=== PATIENT | female | born 1945 | race African-American/Black ===

== ENCOUNTER 2019-05-31 11:02 | Emergency (ER) | payer OTHER | END 2019-05-31 16:50 | disposition home or self-care (01) | LOC: JER 11:02 ==

== ENCOUNTER 2020-10-12 17:04 | Emergency (ER) | payer OTHER ==
[2020-10-12 17:22] VITALS: TEMP 98.4; BMI 43.2
[2020-10-12] MEDS ORDERED: METOCLOPRAMIDE HCL INJECTION 10 MG/2 ML VIAL IVPUSH ONE (18:23)
[2020-10-12] MEDS ORDERED: FAMOTIDINE 20 MG/50 ML IVPB 20 MG/50 ML MG IVPB ONE ×2 (18:23→18:40)
[2020-10-12] MEDS ORDERED: LACTATED RINGERS SOLUTION 1000 ML INFUS.BAG IV ONE (18:23)
[2020-10-12] MEDS ORDERED: METOCLOPRAMIDE HCL INJECTION 10 MG/2 ML VIAL ONE (18:40)
[2020-10-12 19:37] LABS: BASO % 0.8 % (0-2.0); EOS % 0.2 % (0-4.5); HEMATOCRIT 45.4 % (32.4-45.2); HEMOGLOBIN 14.8 GM/dL (10.7-15.3); LYMPH % 12.2 % (8-40); MCH 28.4 pg (25.7-33.7); MCHC 32.7 g/dl (32.0-36.0); MEAN CELL VOLUME 86.8 fl (80-96); MEAN PLT VOLUME 9.7 fl (7.5-11.1); MONO % 3.8 % (3.8-10.2); PLATELET COUNT 550 K/MM3 (134-434); RBC 5.23 M/mm3 (3.60-5.2); RDW 14.6 % (11.6-15.6); WHITE BLOOD COUNT 9.8 K/mm3 (4.0-10.0)
[2020-10-12 19:56] LABS: CHLORIDE 105 mmol/L (98-107); SODIUM 140 mmol/L (136-145)
[2020-10-12 19:58] LABS: CALCIUM 9.7 mg/dL (8.5-10.1)
[2020-10-12 19:59] LABS: ALBUMIN 3.8 g/dl (3.4-5.0); ANION GAP 8 MMOL/L (8-16); BLOOD UREA NITROGEN 16.8 mg/dL (7-18); CO2 27 mmol/L (21-32); GLUCOSE,RANDOM 105 mg/dL (74-106); LIPASE 39 U/L (73-393); MAGNESIUM 1.9 mg/dL (1.8-2.4)
[2020-10-12 20:02] LABS: CREATININE 1.1 mg/dL (0.55-1.3); SGOT/AST 19 U/L (15-37); SGPT/ALT 15 U/L (13-61)
[2020-10-12 20:03] LABS: BILIRUBIN,TOTAL 0.4 mg/dL (0.2-1)
[2020-10-12 20:04] LABS: ALK PHOS 98 U/L (45-117)
[2020-10-12 20:29] LABS: URINE APPEARANCE CLEAR; URINE BILIRUBIN NEGATIVE (NEGATIVE); URINE COLOR YELLOW; URINE GLUCOSE (UA) NEGATIVE (NEGATIVE); URINE KETONE NEGATIVE (NEGATIVE); URINE LEUK ESTERASE NEGATIVE (NEGATIVE); URINE NITRITE NEGATIVE (NEGATIVE); URINE PROTEIN NEGATIVE (NEGATIVE); URINE UROBILINOGEN 0.2 mg/dL (0.2-1.0)
[2020-10-12] MEDS ORDERED: KETOROLAC TROMETHAMINE 15 MG/ML VIAL IVPUSH ONE (20:30)
[2020-10-12] MEDS ORDERED: KETOROLAC TROMETHAMINE 15 MG/ML VIAL ONE (20:59)
[2020-10-12 22:33] VITALS: BP 138/89; PULSE 89
== END 2020-10-12 22:33 | disposition home or self-care (01) ==
LOC: JER 17:04
PROC: 3E033GC Introduction of Other Therapeutic Substance into Peripheral Vein, Percutaneous Approach (ICD-10-PCS; principal; 2020-10-12)
PROC: 3E0333Z Introduction of Anti-inflammatory into Peripheral Vein, Percutaneous Approach (ICD-10-PCS; 2020-10-12)
PROC: 3E033GC Introduction of Other Therapeutic Substance into Peripheral Vein, Percutaneous Approach (ICD-10-PCS; 2020-10-12)
DX: R11.2 Nausea with vomiting, unspecified (principal)
CPT/HCPCS: 36415; 71046-TC-FY; 80053; 81003; 82550; 82553; 83690; 83735; 84484; 85025; 87086; 93005; 93010; 99285-25; C9803; U0003

== ENCOUNTER 2021-04-29 16:17 | Inpatient (IN) | payer OTHER ==
[2021-04-29] MEDS ORDERED: ACETAMINOPHEN 1000 MG/100 ML VIAL (NON FORMULARY) IVPB ONE (18:05)
[2021-04-29] MEDS ORDERED: ONDANSETRON 4 MG TABLET PO ONE (18:05)
[2021-04-29] MEDS ORDERED: FAMOTIDINE 20 MG TABLET PO ONE (18:05)
[2021-04-29] MEDS ORDERED: SODIUM CHLORIDE 0.9% 500 ML INFUS.BAG IV ONE (18:05)
[2021-04-29] MEDS ORDERED: FAMOTIDINE 20 MG TABLET ONE (18:45)
[2021-04-29] MEDS ORDERED: ACETAMINOPHEN INJECTION 100 ML IVPB ONE (18:46)
[2021-04-29] MEDS ORDERED: ONDANSETRON *ODT* 4 MG TABLET ONE (18:46)
[2021-04-29 18:50] LABS: PH,URINE 6.5 (5.0-8.0); URINE APPEARANCE CLEAR; URINE BILIRUBIN NEGATIVE (NEGATIVE); URINE COLOR YELLOW; URINE GLUCOSE (UA) NEGATIVE (NEGATIVE); URINE KETONE NEGATIVE (NEGATIVE); URINE LEUK ESTERASE NEGATIVE (NEGATIVE); URINE NITRITE NEGATIVE (NEGATIVE); URINE PROTEIN NEGATIVE (NEGATIVE)
[2021-04-29 18:52] LABS: EOS % 1.6 % (0-4.5); HEMATOCRIT 46.2 % (32.4-45.2); HEMOGLOBIN 15.3 GM/dL (10.7-15.3); LYMPH % 12.5 % (8-40); MCH 28.2 pg (25.7-33.7); MCHC 33.1 g/dl (32.0-36.0); MEAN CELL VOLUME 85.4 fl (80-96); MEAN PLT VOLUME 8.9 fl (7.5-11.1); MONO % 7.8 % (3.8-10.2); NEUT % 77.1 % (42.8-82.8); PLATELET COUNT 545 10^3/uL (134-434); RBC 5.41 M/mm3 (3.60-5.2); RDW 15.8 % (11.6-15.6); WHITE BLOOD COUNT 9.4 K/mm3 (4.0-10.0)
[2021-04-29 19:08] LABS: CHLORIDE 106 mmol/L (98-107); SODIUM 141 mmol/L (136-145)
[2021-04-29 19:11] LABS: ALBUMIN 3.7 g/dl (3.4-5.0); ANION GAP 7 MMOL/L (8-16); BLOOD UREA NITROGEN 14.4 mg/dL (7-18); CALCIUM 9.9 mg/dL (8.5-10.1); CO2 28 mmol/L (21-32); GLUCOSE,RANDOM 106 mg/dL (74-106); LIPASE 44 U/L (73-393)
[2021-04-29 19:14] LABS: SGOT/AST 16 U/L (15-37); SGPT/ALT 20 U/L (13-61)
[2021-04-29 19:16] LABS: BILIRUBIN,TOTAL 0.4 mg/dL (0.2-1); TOT PROT 7.6 g/dl (6.4-8.2)
[2021-04-29 19:17] LABS: ALK PHOS 92 U/L (45-117)
[2021-04-29] MEDS ORDERED: morphine CARPU-JECT 2 MG/1 ML DISP.SYRIN IVPUSH ONE (20:05)
[2021-04-29] MEDS ORDERED: LORazepam 2 MG TABLET PO ONE (20:05)
[2021-04-29] MEDS ORDERED: LORazepam 1 MG TABLET ONE (20:30)
[2021-04-29] MEDS ORDERED: MORPHINE SULFATE 2 MG/ML VIAL ONE (20:30)
[2021-04-30] MEDS ORDERED: PATIENT'S OWN MEDICATION (NON-FORMULARY) (Diclofenac Sodium [Voltaren] 100 GM Gel..Gram.) TP PRN (06:17)
[2021-04-30] MEDS ORDERED: ASPIRIN COATED 81 MG TABLET.EC ONE (10:26)
[2021-04-30] MEDS ORDERED: DOCUSATE SODIUM 100 MG CAPSULE (FP) PO ONE (10:26)
[2021-04-30] MEDS ORDERED: FAMOTIDINE 20 MG TABLET ONE (10:26)
[2021-04-30] MEDS ORDERED: ENOXAPARIN NA (PORCINE) 40 MG/0.4 ML DISP.SYRIN SQ ONE (10:26)
[2021-04-30] MEDS: FAMOTIDINE 40 MG TABLET PO SCH (10:36)
[2021-04-30] MEDS: ASPIRIN COATED 81 MG TABLET.EC PO SCH (10:36)
[2021-04-30] MEDS: DOCUSATE SODIUM 100 MG CAPSULE (FP) PO SCH ×2 (10:36→21:31)
[2021-04-30] MEDS: ENOXAPARIN NA (PORCINE) 40 MG/0.4 ML DISP.SYRIN SQ SCH (10:36)
[2021-04-30] MEDS: oxyCODONE HCL 5 MG TABLET PO PRN ×2 (14:24→21:30)
[2021-05-01 08:10] LABS: BASO % 1.1 % (0-2.0); EOS % 7.7 % (0-4.5); HEMATOCRIT 41.9 % (32.4-45.2); HEMOGLOBIN 13.9 GM/dL (10.7-15.3); LYMPH % 25.1 % (8-40); MCH 28.5 pg (25.7-33.7); MCHC 33.2 g/dl (32.0-36.0); MEAN CELL VOLUME 85.7 fl (80-96); MEAN PLT VOLUME 9.2 fl (7.5-11.1); MONO % 9.3 % (3.8-10.2); NEUT % 56.8 % (42.8-82.8); PLATELET COUNT 506 10^3/uL (134-434); RBC 4.89 M/mm3 (3.60-5.2); RDW 15.7 % (11.6-15.6); WHITE BLOOD COUNT 9.5 K/mm3 (4.0-10.0)
[2021-05-01 08:35] LABS: BLOOD UREA NITROGEN 12.4 mg/dL (7-18); CALCIUM 9.2 mg/dL (8.5-10.1)
[2021-05-01 08:38] LABS: CREATININE 1.1 mg/dL (0.55-1.3)
[2021-05-01] MEDS: ASPIRIN COATED 81 MG TABLET.EC PO SCH (10:21)
[2021-05-01] MEDS: oxyCODONE HCL 5 MG TABLET PO PRN ×2 (10:21→21:49)
[2021-05-01] MEDS: DOCUSATE SODIUM 100 MG CAPSULE (FP) PO SCH ×2 (10:21→21:49)
[2021-05-01] MEDS: FAMOTIDINE 40 MG TABLET PO SCH (10:22)
[2021-05-01] MEDS: ENOXAPARIN NA (PORCINE) 40 MG/0.4 ML DISP.SYRIN SQ SCH (10:22)
[2021-05-01] MEDS: ACETAMINOPHEN 500 MG TABLET (FP) PO PRN (14:44)
[2021-05-02] MEDS: oxyCODONE HCL 5 MG TABLET PO PRN ×2 (09:55→21:16)
[2021-05-02] MEDS: ASPIRIN COATED 81 MG TABLET.EC PO SCH (09:57)
[2021-05-02] MEDS: FAMOTIDINE 40 MG TABLET PO SCH (09:57)
[2021-05-02] MEDS: DOCUSATE SODIUM 100 MG CAPSULE (FP) PO SCH ×2 (09:57→21:16)
[2021-05-02] MEDS: ENOXAPARIN NA (PORCINE) 40 MG/0.4 ML DISP.SYRIN SQ SCH (09:57)
[2021-05-02 20:05] LABS: URINE BARBITURATES NEGATIVE (NEGATIVE); URINE BENZODIAZEPINES NEGATIVE (NEGATIVE)
[2021-05-02 20:06] LABS: OPIATES, URI NEGATIVE (NEGATIVE); PHENCYCLIDINE,URINE NEGATIVE (NEGATIVE)
[2021-05-02 20:12] LABS: COCAINE, UR NEGATIVE (NEGATIVE); METHADONE, UR NEGATIVE (NEGATIVE); URINE AMPHETAMINES NEGATIVE (NEGATIVE)
[2021-05-03] MEDS ORDERED: PT OWN MED DRAWER 7, Y5N ONE ×2 (08:13→09:06)
[2021-05-03] MEDS: FAMOTIDINE 40 MG TABLET PO SCH (09:13)
[2021-05-03] MEDS: ASPIRIN COATED 81 MG TABLET.EC PO SCH (09:13)
[2021-05-03] MEDS: DOCUSATE SODIUM 100 MG CAPSULE (FP) PO SCH ×2 (09:13→21:07)
[2021-05-03] MEDS: ENOXAPARIN NA (PORCINE) 40 MG/0.4 ML DISP.SYRIN SQ SCH (09:13)
[2021-05-03] MEDS: ACETAMINOPHEN 500 MG TABLET (FP) PO PRN ×2 (09:21→20:18)
[2021-05-03 11:48] VITALS: BMI 40.9
[2021-05-03] MEDS: oxyCODONE HCL 5 MG TABLET PO PRN (20:20)
[2021-05-04] MEDS: oxyCODONE HCL 5 MG TABLET PO PRN ×2 (06:37→19:52)
[2021-05-04] MEDS: DOCUSATE SODIUM 100 MG CAPSULE (FP) PO SCH ×2 (09:41→21:12)
[2021-05-04] MEDS: ENOXAPARIN NA (PORCINE) 40 MG/0.4 ML DISP.SYRIN SQ SCH (09:41)
[2021-05-04] MEDS: ASPIRIN COATED 81 MG TABLET.EC PO SCH (09:41)
[2021-05-04] MEDS: FAMOTIDINE 40 MG TABLET PO SCH (09:41)
[2021-05-05] MEDS ORDERED: PT OWN MED DRAWER 7, Y5N ONE (09:28)
[2021-05-05] MEDS: ASPIRIN COATED 81 MG TABLET.EC PO SCH (09:45)
[2021-05-05] MEDS: ENOXAPARIN NA (PORCINE) 40 MG/0.4 ML DISP.SYRIN SQ SCH (09:45)
[2021-05-05] MEDS: FAMOTIDINE 40 MG TABLET PO SCH (09:45)
[2021-05-05] MEDS: DOCUSATE SODIUM 100 MG CAPSULE (FP) PO SCH ×2 (09:46→22:20)
[2021-05-05] MEDS: ACETAMINOPHEN 500 MG TABLET (FP) PO PRN (10:03)
[2021-05-05] MEDS: oxyCODONE HCL 5 MG TABLET PO PRN ×2 (10:03→22:20)
[2021-05-06] MEDS ORDERED: PT OWN MED DRAWER 7, Y5N ONE (09:04)
[2021-05-06] MEDS: ASPIRIN COATED 81 MG TABLET.EC PO SCH (09:23)
[2021-05-06] MEDS: FAMOTIDINE 40 MG TABLET PO SCH (09:23)
[2021-05-06] MEDS: ENOXAPARIN NA (PORCINE) 40 MG/0.4 ML DISP.SYRIN SQ SCH (09:23)
[2021-05-06] MEDS: DOCUSATE SODIUM 100 MG CAPSULE (FP) PO SCH (09:23)
[2021-05-06 14:09] VITALS: BP 143/58; PULSE 57; TEMP 98.6
== END 2021-05-06 16:04 | disposition home health service (06) | DRG 552 ==
LOC: JER 16:17 → JERBED 04-30 00:17 → UNDOADMOB 04-30 00:17 → JERBED 04-30 14:14 → J4S 04-30 14:14 → INTOOBSV 05-03 11:22 → J4S 05-03 11:22 → JERBED 05-03 11:22 → OBSVTOIN 05-03 11:22
PROVIDERS: ADMIT Hospitalist; ATTEND Family Medicine
DX: M48.062 Spinal stenosis, lumbar region with neurogenic claudication (principal); Z68.41 Body mass index [BMI] 40.0-44.9, adult; F11.20 Opioid dependence, uncomplicated; R42 Dizziness and giddiness; K21.9 Gastro-esophageal reflux disease without esophagitis; I12.9 Hypertensive chronic kidney disease with stage 1 through stage 4 chronic kidney disease, or unspecified chronic kidney disease; N18.9 Chronic kidney disease, unspecified; R26.9 Unspecified abnormalities of gait and mobility; M54.16 Radiculopathy, lumbar region; R10.32 Left lower quadrant pain; K76.0 Fatty (change of) liver, not elsewhere classified; E66.9 Obesity, unspecified; I44.7 Left bundle-branch block, unspecified; I44.0 Atrioventricular block, first degree; G89.29 Other chronic pain; R94.31 Abnormal electrocardiogram [ECG] [EKG]; K44.9 Diaphragmatic hernia without obstruction or gangrene; M48.07 Spinal stenosis, lumbosacral region; M54.17 Radiculopathy, lumbosacral region
CPT/HCPCS: 36415; 70450-TC; 71045-TC-FY; 72148-TC; 74177-TC; 80048; 80053; 80307; 81003; 82550; 83605; 83690; 84484; 85025; 87086; 93005; 93010; 93306-TC; 95860-TC; 97116-GP; 97161-GP; 99285-25; C9803; J0131; Q9967; U0003; U0005

== ENCOUNTER 2021-05-25 00:01 | Emergency (ER) | payer OTHER ==
[2021-05-25 00:15] VITALS: TEMP 98.2; BMI 46.5
[2021-05-25 04:06] VITALS: BP 122/76; PULSE 73
== END 2021-05-25 04:06 | disposition home or self-care (01) ==
LOC: JER 00:01
DX: S93.401A Sprain of unspecified ligament of right ankle, initial encounter (principal); W19.XXXA Unspecified fall, initial encounter
CPT/HCPCS: 73030-TC-RT-FY; 73610-TC-RT-FY; 73630-TC-RT-FY; 99284-25

== ENCOUNTER 2024-07-18 14:42 | Emergency (ER) | payer OTHER ==
[2024-07-18 16:01] VITALS: BMI 39.9
[2024-07-18 16:34] LABS: BASO % 1.3 % (0-2.0); EOS % 2.9 % (0-4.5); HEMATOCRIT 38.7 % (32.4-45.2); HEMOGLOBIN 12.3 GM/dL (10.7-15.3); LYMPH % 14.1 % (8-40); MCH 24.2 pg (25.7-33.7); MCHC 31.9 g/dl (32.0-36.0); MEAN PLT VOLUME 8.6 fl (7.5-11.1); NEUT % 72.7 % (42.8-82.8); PLATELET COUNT 471 10^3/uL (134-434); RBC 5.09 M/mm3 (3.60-5.2); RDW 16.7 % (11.6-15.6); WHITE BLOOD COUNT 11.4 K/mm3 (4.0-10.0)
[2024-07-18 16:41] LABS: INR 1.13 (0.83-1.09)
[2024-07-18 16:43] LABS: ACTIVATED PTT 32.6 SECONDS (25.2-36.5)
[2024-07-18 16:55] LABS: POTASSIUM 3.5 mmol/L (3.5-5.1)
[2024-07-18 16:57] LABS: ALBUMIN 3.1 g/dl (3.4-5.0); CALCIUM 9.6 mg/dL (8.5-10.1)
[2024-07-18 17:00] LABS: CREATININE 1.1 mg/dL (0.55-1.3)
[2024-07-18 17:02] LABS: BILIRUBIN,TOTAL 0.6 mg/dL (0.2-1); TOT PROT 6.8 g/dl (6.4-8.2)
[2024-07-18 17:50] LABS: HIV INTERPRETATION NEGATIVE (NEGATIVE)
[2024-07-18] MEDS ORDERED: HEPARIN NA (PORCINE) 5,000 UNITS/ML 1ML VIAL IVPUSH PRN ×3 (19:50→21:08)
[2024-07-18] MEDS ORDERED: HEPARIN NA (PORCINE) 5,000 UNITS/ML 1ML VIAL IVPUSH ONE ×3 (19:56→21:00)
[2024-07-18] MEDS ORDERED: HEPARIN NA (PORCINE) 5,000 UNITS/ML 1ML VIAL ONE (19:58)
[2024-07-18] MEDS ORDERED: HEPARIN INFUSION - 500 ML IVPB SCH (20:30)
[2024-07-18] MEDS ORDERED: HEPARIN INFUSION - 25,000 UNITS/500 ML INFUS.BAG IVPB SCH (21:15)
[2024-07-18] MEDS ORDERED: HEPARIN INFUSION - 25,000 UNITS/500 ML INFUS.BAG IVPB ONE (21:19)
[2024-07-18] MEDS: HEPARIN INFUSION - 25,000 UNITS/500 ML INFUS.BAG IVPB SCH (21:28)
[2024-07-18 21:54] LABS: INR 1.13 (0.83-1.09); PROTHROMBIN TIME (PATIENT) 12.9 SEC (9.7-13.0)
[2024-07-18 21:56] LABS: ACTIVATED PTT 33.3 SECONDS (25.2-36.5)
[2024-07-18 23:07] VITALS: BP 121/53; PULSE 65; RESP 16
== END 2024-07-18 23:08 | disposition short-term general hospital (02) ==
LOC: JER 14:42
DX: R06.02 Shortness of breath (principal); Z20.822 Contact with and (suspected) exposure to COVID-19
CPT/HCPCS: 0241U-QW; 36415; 71045-TC-FY; 71275-TC; 80053; 83880; 84484; 85025; 85610; 85730; 86803; 87389; 93005; 93010; 99285-25; J1644; Q9967

== ENCOUNTER 2024-08-10 02:49 | Inpatient (IN) | payer OTHER ==
[2024-08-10 02:57] VITALS: BMI 39.4
[2024-08-10 04:24] LABS: BASO % 0.9 % (0-2.0); EOS % 7.5 % (0-4.5); HEMATOCRIT 40.6 % (32.4-45.2); HEMOGLOBIN 12.7 GM/dL (10.7-15.3); MCH 23.4 pg (25.7-33.7); MCHC 31.4 g/dl (32.0-36.0); MEAN CELL VOLUME 74.5 fl (80-96); MONO % 12.1 % (3.8-10.2); NEUT % 57.5 % (42.8-82.8); PLATELET COUNT 649 10^3/uL (134-434); RBC 5.45 M/mm3 (3.60-5.2); RDW 16.8 % (11.6-15.6); WHITE BLOOD COUNT 10.7 K/mm3 (4.0-10.0)
[2024-08-10 04:42] LABS: POTASSIUM 5.4 mmol/L (3.5-5.1)
[2024-08-10 04:45] LABS: ALBUMIN 3.5 g/dl (3.4-5.0); BLOOD UREA NITROGEN 19.8 mg/dL (7-18); CALCIUM 10.4 mg/dL (8.5-10.1); MAGNESIUM 2.1 mg/dL (1.8-2.4)
[2024-08-10 04:47] LABS: CREATININE 1.4 mg/dL (0.55-1.3)
[2024-08-10 04:49] LABS: BILIRUBIN,TOTAL 0.5 mg/dL (0.2-1); TOT PROT 7.5 g/dl (6.4-8.2)
[2024-08-10 06:05] LABS: INR 1.87 (0.83-1.09); PROTHROMBIN TIME (PATIENT) 20.7 SEC (9.7-13.0)
[2024-08-10 06:08] LABS: ACTIVATED PTT 84.5 SECONDS (25.2-36.5)
[2024-08-10 06:10] LABS: EPI CELLS 2 /uL (0-25.1); HYALINE CASTS 0 /uL (0-3.1); PH,URINE 5.5 (5.0-8.0); URINE APPEARANCE CLEAR; URINE BACTERIA >9,000 /uL (0-1359); URINE BILIRUBIN NEGATIVE (NEGATIVE); URINE COLOR YELLOW; URINE GLUCOSE (UA) NEGATIVE (NEGATIVE); URINE KETONE NEGATIVE (NEGATIVE); URINE LEUK ESTERASE 2+ (NEGATIVE); URINE NITRITE POSITIVE (NEGATIVE); URINE PROTEIN NEGATIVE (NEGATIVE); URINE RBC 17 /uL (0-23.9); URINE WBC 212 /uL (0-25.8)
[2024-08-10 06:12] LABS: N-TERMINAL BNP 83.5 pg/ml (5-450)
[2024-08-10] MEDS ORDERED: CEFTRIAXONE 1 GM/50 ML BAG ONE (06:22)
[2024-08-10 06:35] LABS: POTASSIUM 4.7 mmol/L (3.5-5.1)
[2024-08-10 06:37] LABS: BLOOD UREA NITROGEN 18.2 mg/dL (7-18); CALCIUM 9.3 mg/dL (8.5-10.1)
[2024-08-10 06:41] LABS: CREATININE 1.2 mg/dL (0.55-1.3)
[2024-08-10] MEDS ORDERED: PANTOPRAZOLE 40 MG TABLET PO ONE (10:53)
[2024-08-10] MEDS ORDERED: amLODIPine BESYLATE 2.5 MG TABLET (FP) ONE (10:54)
[2024-08-10] MEDS ORDERED: APIXABAN 5 MG TABLET ONE (10:54)
[2024-08-10] MEDS: APIXABAN 5 MG TABLET PO SCH (11:00)
[2024-08-10] MEDS: amLODIPine BESYLATE 2.5 MG TABLET (FP) PO SCH (11:03)
[2024-08-10] MEDS: PANTOPRAZOLE 40 MG TABLET PO SCH (11:04)
[2024-08-10] MEDS: oxyCODONE HCL 5 MG TABLET PO PRN (14:21)
[2024-08-11 07:38] LABS: BASO % 0.9 % (0-2.0); EOS % 8.3 % (0-4.5); HEMOGLOBIN 12.1 GM/dL (10.7-15.3); LYMPH % 20.8 % (8-40); MCH 23.4 pg (25.7-33.7); MCHC 31.8 g/dl (32.0-36.0); MEAN CELL VOLUME 73.7 fl (80-96); MEAN PLT VOLUME 9.1 fl (7.5-11.1); MONO % 12.5 % (3.8-10.2); NEUT % 57.5 % (42.8-82.8); PLATELET COUNT 615 10^3/uL (134-434); RBC 5.16 M/mm3 (3.60-5.2); RDW 16.6 % (11.6-15.6); WHITE BLOOD COUNT 9.1 K/mm3 (4.0-10.0)
[2024-08-11 07:55] LABS: POTASSIUM 4.4 mmol/L (3.5-5.1)
[2024-08-11 07:59] LABS: ALBUMIN 3.1 g/dl (3.4-5.0); CALCIUM 9.8 mg/dL (8.5-10.1)
[2024-08-11 08:03] LABS: CREATININE 1.1 mg/dL (0.55-1.3)
[2024-08-11 08:04] LABS: BILIRUBIN,TOTAL 0.6 mg/dL (0.2-1); TOT PROT 6.6 g/dl (6.4-8.2)
[2024-08-11] MEDS: CEFTRIAXONE 1 GM in DEXTROSE 5%-WATER - 50 ML IVPB SCH (11:00)
[2024-08-11] MEDS: NYSTATIN 100,000 UNIT/GM TOPICAL CREAM 15 GM TUBE TP SCH (12:12)
[2024-08-11] MEDS: ZINC OXIDE 20% TOPICAL OINTMENT 30 GM TUBE TP SCH (12:13)
[2024-08-11] MEDS: ACETAMINOPHEN 325 MG TABLET (FP) PO PRN (20:19)
[2024-08-12 07:29] LABS: HEMATOCRIT 36.4 % (32.4-45.2); MCH 24.4 pg (25.7-33.7); MEAN CELL VOLUME 73.9 fl (80-96); MEAN PLT VOLUME 9.3 fl (7.5-11.1); PLATELET COUNT 579 10^3/uL (134-434); RBC 4.92 M/mm3 (3.60-5.2); RDW 16.7 % (11.6-15.6); WHITE BLOOD COUNT 9.9 K/mm3 (4.0-10.0)
[2024-08-12 07:51] LABS: POTASSIUM 4.4 mmol/L (3.5-5.1)
[2024-08-12 08:01] LABS: CALCIUM 9.4 mg/dL (8.5-10.1)
[2024-08-12 08:02] LABS: ALBUMIN 3.1 g/dl (3.4-5.0); BLOOD UREA NITROGEN 16.5 mg/dL (7-18); MAGNESIUM 1.8 mg/dL (1.8-2.4)
[2024-08-12 08:05] LABS: CREATININE 1.2 mg/dL (0.55-1.3); PHOSPHOROUS 3.6 mg/dL (2.5-4.9)
[2024-08-12 08:06] LABS: BILIRUBIN,TOTAL 0.6 mg/dL (0.2-1); TOT PROT 6.4 g/dl (6.4-8.2)
[2024-08-13 07:46] LABS: HEMATOCRIT 37.6 % (32.4-45.2); HEMOGLOBIN 11.8 GM/dL (10.7-15.3); MCH 23.6 pg (25.7-33.7); MCHC 31.5 g/dl (32.0-36.0); MEAN CELL VOLUME 74.9 fl (80-96); MEAN PLT VOLUME 9.2 fl (7.5-11.1); PLATELET COUNT 575 10^3/uL (134-434); RBC 5.02 M/mm3 (3.60-5.2); RDW 16.9 % (11.6-15.6); WHITE BLOOD COUNT 10.6 K/mm3 (4.0-10.0)
[2024-08-13 08:02] LABS: POTASSIUM 4.3 mmol/L (3.5-5.1)
[2024-08-13 08:07] LABS: ALBUMIN 2.9 g/dl (3.4-5.0); BLOOD UREA NITROGEN 13.5 mg/dL (7-18); MAGNESIUM 1.9 mg/dL (1.8-2.4)
[2024-08-13 08:10] LABS: CREATININE 1.1 mg/dL (0.55-1.3); PHOSPHOROUS 3.9 mg/dL (2.5-4.9)
[2024-08-13 08:11] LABS: BILIRUBIN,TOTAL 0.6 mg/dL (0.2-1); TOT PROT 6.3 g/dl (6.4-8.2)
[2024-08-14 07:24] LABS: BASO % 1.1 % (0-2.0); EOS % 9.5 % (0-4.5); HEMATOCRIT 39.6 % (32.4-45.2); HEMOGLOBIN 12.3 GM/dL (10.7-15.3); LYMPH % 18.6 % (8-40); MCH 23.4 pg (25.7-33.7); MCHC 31.1 g/dl (32.0-36.0); MEAN CELL VOLUME 75.1 fl (80-96); MEAN PLT VOLUME 9.2 fl (7.5-11.1); MONO % 12.1 % (3.8-10.2); NEUT % 58.7 % (42.8-82.8); PLATELET COUNT 574 10^3/uL (134-434); RBC 5.27 M/mm3 (3.60-5.2); RDW 16.7 % (11.6-15.6)
[2024-08-14 07:34] LABS: POTASSIUM 4.3 mmol/L (3.5-5.1)
[2024-08-14 07:43] LABS: CALCIUM 9.6 mg/dL (8.5-10.1)
[2024-08-14 07:44] LABS: MAGNESIUM 1.9 mg/dL (1.8-2.4)
[2024-08-14 07:47] LABS: BILIRUBIN,TOTAL 0.5 mg/dL (0.2-1); PHOSPHOROUS 3.3 mg/dL (2.5-4.9); TOT PROT 6.5 g/dl (6.4-8.2)
[2024-08-14] MEDS ORDERED: oxyCODONE HCL 5 MG TABLET PO PRN (23:37)
[2024-08-15] MEDS: oxyCODONE HCL 5 MG TABLET PO PRN (00:16)
[2024-08-15 08:20] LABS: HEMATOCRIT 38.3 % (32.4-45.2); HEMOGLOBIN 12.4 GM/dL (10.7-15.3); MCH 23.6 pg (25.7-33.7); MCHC 32.3 g/dl (32.0-36.0); MEAN CELL VOLUME 73.2 fl (80-96); MEAN PLT VOLUME 9.1 fl (7.5-11.1); PLATELET COUNT 594 10^3/uL (134-434); RBC 5.23 M/mm3 (3.60-5.2); RDW 16.8 % (11.6-15.6)
[2024-08-15 08:37] LABS: POTASSIUM 4.4 mmol/L (3.5-5.1)
[2024-08-15 08:39] LABS: ALBUMIN 2.9 g/dl (3.4-5.0)
[2024-08-15 08:40] LABS: BLOOD UREA NITROGEN 17.6 mg/dL (7-18); MAGNESIUM 1.8 mg/dL (1.8-2.4)
[2024-08-15 08:44] LABS: CREATININE 1.1 mg/dL (0.55-1.3); PHOSPHOROUS 3.6 mg/dL (2.5-4.9)
[2024-08-15 08:45] LABS: BILIRUBIN,TOTAL 0.4 mg/dL (0.2-1); TOT PROT 6.4 g/dl (6.4-8.2)
[2024-08-15 15:29] VITALS: BP 126/70; PULSE 78; RESP 18; TEMP 98.7
== END 2024-08-15 16:54 | disposition home or self-care (01) | DRG 689 ==
LOC: JER 02:49 → JERBED 08:39 → OBSVTOIN 10:19 → J4W 16:24
PROVIDERS: ADMIT Internal Medicine; ATTEND Internal Medicine
DX: N39.0 Urinary tract infection, site not specified (principal); I26.99 Other pulmonary embolism without acute cor pulmonale; F11.20 Opioid dependence, uncomplicated; Z68.41 Body mass index [BMI] 40.0-44.9, adult; E66.01 Morbid (severe) obesity due to excess calories; B96.89 Other specified bacterial agents as the cause of diseases classified elsewhere; R07.89 Other chest pain; M54.9 Dorsalgia, unspecified; M79.602 Pain in left arm; G62.9 Polyneuropathy, unspecified; R30.0 Dysuria; L22 Diaper dermatitis; B37.2 Candidiasis of skin and nail; I12.9 Hypertensive chronic kidney disease with stage 1 through stage 4 chronic kidney disease, or unspecified chronic kidney disease; N18.9 Chronic kidney disease, unspecified; D72.829 Elevated white blood cell count, unspecified; Z85.42 Personal history of malignant neoplasm of other parts of uterus; Z86.718 Personal history of other venous thrombosis and embolism
CPT/HCPCS: 0241U-QW; 36415; 71045-TC-FY; 72132-TC; 73560-TC-LT-FY; 80048; 80053; 81003; 83735; 83880; 84100; 84439; 84443; 84484; 85025; 85027; 85610; 85730; 86850; 86900; 86901; 87086; 87186; 93005; 93010; 97116-GP; 97161-GP; 99285-25; G0378; Q9967

== ENCOUNTER 2025-02-11 15:32 | Inpatient (IN) | payer OTHER ==
[2025-02-11] MEDS ORDERED: LIDOCAINE 5% TOPICAL PATCH ONE (16:28)
[2025-02-11] MEDS ORDERED: ACETAMINOPHEN INJECTION 100 ML ONE (16:28)
[2025-02-11] MEDS: ACETAMINOPHEN 1000 MG/100 ML BAG IVPB ONE (16:47)
[2025-02-11] MEDS: LIDOCAINE 5% TOPICAL PATCH TP ONE (16:48)
[2025-02-11 16:53] LABS: ABSOLUTE IMMATURE GRANULOCYTES 0.08 x10^3/uL (0.0-0.031); BASOPHILS # 0.07 x10^3/uL (0.01-0.08); EOSINOPHIL % 0.8 % (0.7-5.8); EOSINOPHILS # 0.11 x10^3/uL (0.04-0.36); HEMATOCRIT 45.7 % (34.1-44.9); HEMOGLOBIN 13.8 g/dL (11.2-15.7); MCHC 30.2 g/dl (32.2-35.5); MEAN CELL VOLUME 69.9 fl (79.4-94.8); MEAN PLT VOLUME 11.1 fl (9.4-12.3); MONOCYTE % 7.5 % (4.7-12.5); PLATELET COUNT 703 x10^3/uL (182-369); RDW 19.4 % (12.4-16.6); VENOUS BASE EXCESS -4.9 mmol/L (-2-2); VENOUS O2 SATURATION 47.1 % (70-80); VENOUS PCO2 40.5 mmHg (38-52); VENOUS PH 7.327 (7.310-7.410)
[2025-02-11 17:01] LABS: INR 1.28 (0.83-1.09); PROTHROMBIN TIME (PATIENT) 14.1 SEC (9.7-13.0)
[2025-02-11 17:04] LABS: ACTIVATED PTT 32.2 SECONDS (25.2-36.5)
[2025-02-11 17:30] LABS: POTASSIUM 4.2 mmol/L (3.5-5.1)
[2025-02-11 17:33] LABS: ALBUMIN 3.4 g/dl (3.4-5.0); BLOOD UREA NITROGEN 51.1 mg/dL (7-18); CALCIUM 10.5 mg/dL (8.5-10.1)
[2025-02-11 17:36] LABS: CREATININE 1.9 mg/dL (0.55-1.3)
[2025-02-11 17:38] LABS: BILIRUBIN,TOTAL 0.8 mg/dL (0.2-1); TOT PROT 7.5 g/dl (6.4-8.2)
[2025-02-11] MEDS ORDERED: HEPARIN INFUSION - 25,000 UNITS/500 ML INFUS.BAG IVPB ONE (19:48)
[2025-02-11] MEDS ORDERED: HEPARIN NA (PORCINE) 5,000 UNITS/ML 1ML VIAL ONE (19:48)
[2025-02-11] MEDS: HEPARIN NA (PORCINE) 5,000 UNITS/ML 1ML VIAL IVPUSH ONE (19:54)
[2025-02-11] MEDS: HEPARIN INFUSION - 25,000 UNITS/500 ML INFUS.BAG IVPB SCH (19:57)
[2025-02-11] MEDS: LIDOCAINE PATCH REMOVAL MC SCH (22:02)
[2025-02-11] MEDS ORDERED: ACETAMINOPHEN 1000 MG/100 ML BAG IVPB PRN (22:51)
[2025-02-11 23:44] LABS: POTASSIUM 3.3 mmol/L (3.5-5.1)
[2025-02-11 23:47] LABS: BLOOD UREA NITROGEN 51.3 mg/dL (7-18); CALCIUM 9.9 mg/dL (8.5-10.1); MAGNESIUM 2.6 mg/dL (1.8-2.4)
[2025-02-11 23:50] LABS: CREATININE 1.8 mg/dL (0.55-1.3)
[2025-02-12] MEDS ORDERED: KCL 10 MEQ IVPB 10 MEQ/100 ML INFUS.BAG IVPB SCH (01:00)
[2025-02-12] MEDS ORDERED: POTASSIUM CHLORIDE ORAL LIQUID 20 MEQ/15 ML PO ONE (02:29)
[2025-02-12 04:29] VITALS: BMI 36.7
[2025-02-12] MEDS: POTASSIUM CHLORIDE ORAL LIQUID 20 MEQ/15 ML PO ONE (05:42)
[2025-02-12 07:38] LABS: BASOPHILS # 0.05 x10^3/uL (0.01-0.08); EOSINOPHIL % 0.1 % (0.7-5.8); EOSINOPHILS # 0.02 x10^3/uL (0.04-0.36); HEMATOCRIT 46.1 % (34.1-44.9); HEMOGLOBIN 13.4 g/dL (11.2-15.7); MCHC 29.1 g/dl (32.2-35.5); MEAN CELL VOLUME 70.6 fl (79.4-94.8); MEAN PLT VOLUME 11.5 fl (9.4-12.3); MONOCYTE # 1.16 x10^3/uL (0.24-0.86); MONOCYTE % 8.2 % (4.7-12.5); PLATELET COUNT 717 x10^3/uL (182-369); RDW 19.5 % (12.4-16.6)
[2025-02-12 07:57] LABS: POTASSIUM 4.2 mmol/L (3.5-5.1)
[2025-02-12 07:59] LABS: CALCIUM 10.3 mg/dL (8.5-10.1)
[2025-02-12 08:00] LABS: BLOOD UREA NITROGEN 52.8 mg/dL (7-18)
[2025-02-12 08:03] LABS: CREATININE 2.1 mg/dL (0.55-1.3)
[2025-02-12] MEDS: KCL 10 MEQ IVPB 10 MEQ/100 ML INFUS.BAG IVPB SCH (08:22)
[2025-02-12] MEDS: SODIUM CHLORIDE 500 ML IV STA (08:26)
[2025-02-12] MEDS ORDERED: SODIUM CHLORIDE 0.45%/POT 20 MEQ/1,000 ML INFUS.BAG IV SCH (08:50)
[2025-02-12] MEDS: oxyCODONE HCL 5 MG TABLET PO PRN (09:04)
[2025-02-12] MEDS: POTASSIUM CHLORIDE TABS 20 MEQ TABLET.ER (FP) PO ONE (12:18)
[2025-02-12 12:59] LABS: EPI CELLS 9 /uL (0-25.1); HYALINE CASTS 1 /uL (0-3.1); PH,URINE 5.5 (5.0-8.0); URINE APPEARANCE CLEAR; URINE BACTERIA 185 /uL (0-1359); URINE BILIRUBIN NEGATIVE (NEGATIVE); URINE COLOR YELLOW; URINE GLUCOSE (UA) NEGATIVE (NEGATIVE); URINE KETONE NEGATIVE (NEGATIVE); URINE LEUK ESTERASE 1+ (NEGATIVE); URINE NITRITE NEGATIVE (NEGATIVE); URINE PROTEIN 1+ (NEGATIVE); URINE RBC 20 /uL (0-23.9); URINE WBC 190 /uL (0-25.8)
[2025-02-12] MEDS: CEFTRIAXONE 1 G/50 ML PREMIX 50 ML IVPB SCH (16:09)
[2025-02-12] MEDS: POLYETHYLENE GLYCOL (HEALTHYLAX) 3350 17 GM PACKET PO PRN (18:04)
[2025-02-12] MEDS: DOCUSATE SODIUM 100 MG CAPSULE (FP) PO SCH (21:31)
[2025-02-13 06:48] LABS: HEMATOCRIT 41.7 % (34.1-44.9); HEMOGLOBIN 12.5 g/dL (11.2-15.7); MEAN CELL VOLUME 70.2 fl (79.4-94.8); PLATELET COUNT 456 x10^3/uL (182-369); RDW 18.6 % (12.4-16.6)
[2025-02-13 07:08] LABS: POTASSIUM 4.3 mmol/L (3.5-5.1)
[2025-02-13 07:20] LABS: BLOOD UREA NITROGEN 53.7 mg/dL (7-18); CALCIUM 9.7 mg/dL (8.5-10.1); MAGNESIUM 2.3 mg/dL (1.8-2.4)
[2025-02-13 07:22] LABS: CREATININE 1.7 mg/dL (0.55-1.3); PHOSPHOROUS 4.5 mg/dL (2.5-4.9)
[2025-02-13] MEDS ORDERED: MIDAZOLAM HCL 2 MG/2 ML SINGLE DOSE VIAL ONE (16:43)
[2025-02-13] MEDS ORDERED: FENTANYL CITRATE/PF 50 MCG/ML VIAL ONE (16:43)
[2025-02-13] MEDS: FENTANYL CITRATE/PF 50 MCG/ML VIAL IVPUSH ONE (16:52)
[2025-02-13] MEDS: SODIUM CHLORIDE 250 ML IV ONE (17:40)
[2025-02-13] MEDS ORDERED: NALOXONE HCL 0.4 MG/ML VIAL ONE (17:47)
[2025-02-13] MEDS: NALOXONE HCL 0.4 MG/ML VIAL IVPUSH ONE (17:52)
[2025-02-13 22:41] LABS: ARTERIAL BLOOD GAS BASE EXCESS -4.5 mmol/L (-2-2); ARTERIAL BLOOD GAS PO2 155.8 mmHg (80-100); ARTERIAL BLOOD GAS pH 7.408 (7.350-7.450)
[2025-02-13] MEDS ORDERED: ACETAMINOPHEN 500 MG TABLET (FP) PO PRN (22:42)
[2025-02-13] MEDS: MUPIROCIN 2% TOPICAL OINTMENT FOR DECOLONIZATION NS SCH (22:55)
[2025-02-13] MEDS: CHLORHEXIDINE GLUCONATE 4% CLEANSER FOR DECOLONIZATION TP SCH (22:55)
[2025-02-14 06:55] LABS: HEMATOCRIT 40.1 % (34.1-44.9); HEMOGLOBIN 11.9 g/dL (11.2-15.7); MCHC 29.7 g/dl (32.2-35.5); MEAN CELL VOLUME 70.5 fl (79.4-94.8); MEAN PLT VOLUME 11.8 fl (9.4-12.3); PLATELET COUNT 555 x10^3/uL (182-369); RDW 18.8 % (12.4-16.6)
[2025-02-14 07:13] VITALS: RESP 20; TEMP 98.5
[2025-02-14 07:26] LABS: POTASSIUM 4.1 mmol/L (3.5-5.1)
[2025-02-14 07:43] LABS: CALCIUM 9.5 mg/dL (8.5-10.1)
[2025-02-14 07:44] LABS: BLOOD UREA NITROGEN 52.2 mg/dL (7-18)
[2025-02-14 07:48] LABS: CREATININE 1.8 mg/dL (0.55-1.3)
[2025-02-14 10:11] VITALS: BP 111/66; PULSE 59
[2025-02-14 12:18] LABS: N-TERMINAL BNP 11407.2 pg/ml (5-450)
== END 2025-02-14 12:27 | disposition short-term general hospital (02) | DRG 163 ==
LOC: JER 15:32 → JERBED 19:23 → J4W 02-12 03:56 → JICU 02-13 21:41
PROVIDERS: ADMIT Internal Medicine; ATTEND Internal Medicine Pulmonary Disease
PROC: 02CQ3ZZ Extirpation of Matter from Right Pulmonary Artery, Percutaneous Approach (ICD-10-PCS; principal; 2025-02-13)
PROC: 02FQ3Z0 Fragmentation of Right Pulmonary Artery, Percutaneous Approach, Ultrasonic (ICD-10-PCS; 2025-02-13)
PROC: 4A023N7 Measurement of Cardiac Sampling and Pressure, Left Heart, Percutaneous Approach (ICD-10-PCS; 2025-02-13)
DX: I26.99 Other pulmonary embolism without acute cor pulmonale (principal); J96.01 Acute respiratory failure with hypoxia; F11.20 Opioid dependence, uncomplicated; I82.401 Acute embolism and thrombosis of unspecified deep veins of right lower extremity; I24.89 Other forms of acute ischemic heart disease; N18.30 Chronic kidney disease, stage 3 unspecified; I12.9 Hypertensive chronic kidney disease with stage 1 through stage 4 chronic kidney disease, or unspecified chronic kidney disease; E66.9 Obesity, unspecified; Z68.37 Body mass index [BMI] 37.0-37.9, adult; K21.9 Gastro-esophageal reflux disease without esophagitis
CPT/HCPCS: 0241U-QW; 36415; 36600; 37187; 37248; 71045-TC-FY; 71250-TC; 71275-TC; 76000-TC-FY; 76998-TC; 80048; 80053; 81003; 82272; 82803; 83735; 83880; 84100; 84484; 85025; 85027; 85610; 85730; 86850; 86900; 86901; 93005; 93010; 93306-TC; 93970-TC; 99285-25; C1757; C1769; J0131; J1644; Q9967